=== PATIENT | male | born 1985 | race Two or more races ===

== ENCOUNTER 2019-07-25 06:57 | Day surgery (SDC) | payer OTHER ==
[~2019-07-25 06:57] MED LIST: TRICOR145 MG PO
== END 2019-07-25 12:00 | disposition home or self-care (01) ==
LOC: AMB-ENDOS 06:57
DX: K62.89 Other specified diseases of anus and rectum (principal); K64.2 Third degree hemorrhoids

== ENCOUNTER 2022-11-23 11:23 | Inpatient (IN) | payer OTHER ==
[~2022-11-23] VITALS: Ht 175.3 cm; Wt 68.9 kg
[2022-11-23] MEDS ORDERED: MIRALAX17 GM PO (12:44)
== END 2022-11-30 14:20 | disposition home or self-care (01) | DRG 330 ==
LOC: O/R 11-28 05:31 → SURH 11-28 07:00
PROVIDERS: ADMIT Colon & Rectal Surgery; ATTEND Colon & Rectal Surgery
PROC: 07BB0ZZ Excision of Mesenteric Lymphatic, Open Approach (ICD-10-PCS; 2022-11-28)
PROC: 07BC0ZZ Excision of Pelvis Lymphatic, Open Approach (ICD-10-PCS; 2022-11-28)
PROC: 0DBU0ZZ Excision of Omentum, Open Approach (ICD-10-PCS; 2022-11-28)
PROC: 0DJD4ZZ Inspection of Lower Intestinal Tract, Percutaneous Endoscopic Approach (ICD-10-PCS; 2022-11-28)
PROC: 0DBF0ZZ Excision of Right Large Intestine, Open Approach (ICD-10-PCS; principal; 2022-11-28 07:00)
DX: C18.0 Malignant neoplasm of cecum (principal); K92.1 Melena; R59.0 Localized enlarged lymph nodes; D64.89 Other specified anemias; Z86.010 Personal history of colon polyps; Z53.31 Laparoscopic surgical procedure converted to open procedure

== ENCOUNTER 2023-01-03 06:22 | Day surgery (SDC) | payer OTHER ==
[~2023-01-03 06:22] MED LIST changes: +FUSION PLUS CA1 EACH PO; +MIRALAX17 GM PO; +NEURIN PO; +PROBIOTI PO
== END 2023-01-03 10:30 | disposition home or self-care (01) ==
LOC: CIR.AMB 06:22
PROVIDERS: ATTEND Colon & Rectal Surgery
DX: C18.9 Malignant neoplasm of colon, unspecified (principal); K92.1 Melena; I10 Essential (primary) hypertension; Z20.822 Contact with and (suspected) exposure to COVID-19